=== PATIENT | male | born 1945 | race Caucasian/White ===

== ENCOUNTER → 2018-09-19 | Outpatient (CLI) | payer MEDICARE, OTHER, SELFPAY ==
--- NOTE | 2018-09-19 13:18 | RAD_ITS ---
STUDY: X-RAY - LUMBAR SPINE REASON FOR EXAM: Male, 72 years old. Pain TECHNIQUE: 5 view(s) of the lumbar spine were obtained. COMPARISON: X-ray lumbar spine December 09, 2016 FINDINGS: There is no evidence of fracture or dislocation in the lumbar spine. Mild disc space loss is present at the L4-L5 level. Mild disc space loss is present at the L3-L4 and L5-S1 level. Mild multilevel osteoarthrosis is present. RAD/L/S Spine Min 4 Views IMPRESSION: No fracture or dislocation in the lumbar spine. Degenerative changes described above. Electronically Signed: Edwin Xiao, at 19:02 EDT Tel , Service support ,
== END | disposition home or self-care (01) ==
PROVIDERS: Family Provider Family Medicine; PCP Family Medicine
DX: M54.16 Radiculopathy, lumbar region (principal)
CPT/HCPCS: 72110

== ENCOUNTER → 2018-11-01 | Outpatient (CLI) | payer MEDICARE, OTHER, SELFPAY ==
[2018-10-25 12:44] LABS: BUN 17 mg/dL (7-18); Creatinine, Serum 1.03 mg/dL (0.70-1.30); EST Glomerular Filtration Rate 76 mL/min (>60); Est Glom Filt Rate - Afr Amer 91 mL/min (>60)
--- NOTE | 2018-11-01 09:32 | MRI_ITS ---
HISTORY: Left lumbar radiculopathy and bilateral leg pain, history of prior surgery 2011 COMPARISON: Lumbar radiograph 09/19/2018 and MRI lumbar spine 12/09/2016 TECHNIQUE: Multisequence multiplanar MR imaging of the lumbar spine was performed per department protocol without and with 19 ml of Dotarem IV gadolinium. # of images incl. 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 Lumbar alignment is within normal limits . No acute fracture or subluxation. Lumbar vertebral bodies are normal in height. Minimal degenerative anterior spurring throughout the lumbar spine. Prior left hemilaminotomy at the L4 and L5 levels. No focal marrow signal abnormality to suggest a pathologic process. CONUS: The conus is identified opposite the L1 level and is normal in morphology and signal characteristics. DISCS: Moderate disc space narrowing at L4-L5 and severe disc space narrowing at L5-S1 level. Vacuum phenomenon at the L5-S1 level. Desiccated disc at L5-S1 and moderate disc desiccation at L3-L4 and L4-L5 levels. LEVELS: T12-L1: No disc bulge or disc protrusion. No canal or neural foraminal stenosis. L1-2: Mild posterior disc bulge asymmetric to the right without significant effacement of the ventral thecal sac. No superimposed disc protrusion. No canal or foraminal stenosis. L2-3: No disc bulge or disc protrusion. No canal or neural foraminal stenosis. L3-4: A 2 mm broad-based disc protrusion which combines with mild facet joint arthropathy and ligamentum flavum redundancy results in mild canal stenosis. No foraminal stenosis. L4-5: Left hemilaminotomy defect is seen. Combination of 2 mm broad-based disc protrusion and mild facet joint arthropathy results in mild canal stenosis. No neural foramina stenosis. L5-S1: Left hemilaminotomy defect is seen. 2-3 mm central disc protrusion which predominate effaces the ventral epidural fat and 1 mm effacement of the central aspect of the ventral thecal sac. Mild bilateral facet joint arthropathy. No canal or foraminal stenosis. POST CONTRAST: Post contrast imaging demonstrates no abnormal enhancement of the cauda equina or neural roots to suggest arachnoiditis or neuritis respectively. No abnormal enhancement of the osseous structures or visualized soft tissues. SOFT TISSUES: Paravertebral soft tissues show no gross signal abnormalities. MRI/Spine Lumbar W/WO Contrast IMPRESSION: 1. 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 2. Status post left hemilaminotomy at L4 and L5. 3. Mild canal stenosis at L3-L4 and L4-L5 levels, unchanged from November 2016. 4. No neural foraminal stenosis. 5. No abnormal enhancement. at 1655 Reported and signed by: Elvin Guan MD Electronically Signed: Elvin Guan MD at 16:54 EDT Tel , Service support ,
== END | disposition home or self-care (01) ==
LOC: MRI 09:30
PROVIDERS: Family Provider Family Medicine; PCP Family Medicine; Referring Provider Orthopaedic Surgery Orthopaedic Surgery of the Spine; Visit Provider Orthopaedic Surgery Orthopaedic Surgery of the Spine
DX: M48.062 Spinal stenosis, lumbar region with neurogenic claudication (principal); M51.36 Other intervertebral disc degeneration, lumbar region
CPT/HCPCS: 36415; 72158; 82565; 84520; A9575

== ENCOUNTER → 2019-01-26 12:41 | Outpatient (CLI) | payer MEDICARE, OTHER, SELFPAY ==
[2018-12-13 09:49] VITALS: BMI 32.2
--- NOTE | 2019-01-26 12:53 | RAD_ITS ---
STUDY: X-RAY - PELVIS AND BILATERAL HIPS REASON FOR EXAM: Pain in hips, mostly on the left side and crest tender to touch. TECHNIQUE: AP view of the pelvis.? 2 views of the right hip, and 2 views of the left hip were obtained. COMPARISON: None. FINDINGS: Normal visualized soft tissue structures. There is mild enthesopathy of the iliac wings bilaterally. Otherwise, unremarkable bilateral iliac wings, sacroiliac joints and visualized sacrum. Normal bilateral superior and inferior pubic rami. Normal pubic symphysis. Normal bilateral ischial tuberosities. Normal visualized right femoral head. Normal right acetabulum. There is mild joint space narrowing of the superomedial right hip joint. Normal visualized left femoral head. Normal left acetabulum. There is mild joint space narrowing of the superomedial left hip joint. RAD/Hips B/L min 2 views w/ Pelvis IMPRESSION: Mild bilateral hip arthrosis. Mild enthesopathy of the iliac wings bilaterally. Electronically Signed: Calixto Mukherjee MD at 13:15 EDT Tel , Service support ,
== END ==
LOC: LAB 12:46 → RAD 12:48
PROVIDERS: Family Provider Family Medicine; PCP Family Medicine
DX: M70.72 Other bursitis of hip, left hip (principal); M25.559 Pain in unspecified hip
CPT/HCPCS: 73521

== ENCOUNTER 2021-06-26 11:58 | Emergency (ER) | payer MEDICARE, OTHER, SELFPAY ==
[2021-06-26 12:02] VITALS: BP 136/62; PULSE 70; RESP 16; TEMP 36.6; O2SAT 97; BMI 32.4
--- NOTE | 2021-06-26 12:14 | EX.ED.UPPERE ---
HPI History of Present Illness HPI Narrative: Patient presents with injury to his right middle finger that occurred today. Patient states he was doing some woodworking with a jointer. Patient states that he got his right middle finger caught in the jointer. Patient states that he cut the tip of his finger off. Patient states the bleeding has been persistent. Patient states this occurred approximately 20 to 30 minutes prior to arrival. Patient describes the pain as sharp. Patient states nothing makes it worse and nothing makes it better. Patient denies any paresthesias or weakness. Patient is unsure of his last tetanus. Patient denies any other injuries. Chief Complaint: Laceration Informant: patient Occured/Mechanism Comment: Cut with a jointer Onset/Context/Timing Onset: Today Context: Sudden Onset Timing: Continuous Quality of Pain: Sharp Location: Distal phalanx right middle finger Worsened by: Nothing Relieved by: Nothing Associated Symptoms Associated Symptoms: Negative for Parasthesia and Weakness Narrative Tetanus Immunization: Unknown PFSH PFSH Medical History Acute maxillary sinusitis, unspecified Arthritis Cataract COVID-19 h/o cancer H/O hemorrhoids Hay fever Hypertension Shoulder pain Home Medications celecoxib 200 mg capsule 200 mg PO BID 12/13/18 [History Last Taken Unknown] nebivolol 20 mg tablet 20 mg PO DAILY 12/13/18 [History Last Taken Unknown] omeprazole 20 mg capsule,delayed release 20 mg PO DAILY 12/13/18 [History Last Taken Unknown] tamsulosin 0.4 mg capsule 0.4 mg PO DAILY 12/13/18 [History Last Taken Unknown] amlodipine 5 mg PO DAILY 06/26/21 [History Last Taken Unknown] cephalexin 500 mg PO Q6 #40 capsule 06/26/21 [Rx Last Taken Unknown] Allergy/AdvReac Type Severity Reaction Status Date / Time No Known Allergies Allergy Verified 06/26/21 12:04 Family History Father Cancer Throat Brother Cancer Mother Hypertension Surgical History Previous back surgery Social History Smoking Status: Never smoker ROS ROS ED Constitutional Constitutional ED: Denies chills or fever(s) Eyes Eyes: Denies blurry vision or change in vision ENT ENT ED: Denies rhinorrhea or sore throat Cardiovascular Cardiovascular: Denies chest pain or palpitations Respiratory/Chest Respiratory/Chest: Denies cough or dyspnea Gastrointestinal Gastrointestinal: Denies nausea or vomiting Genitourinary Genitourinary ED: Denies dysuria or hematuria Musculoskeletal Musculoskeletal: Reports back pain; Denies neck pain Integumentary Denies abscess or rash Neurologic Neurologic: Denies headache(s) or weakness Allergic/Immunologic Allergic/Immunologic ED: Denies mouth swelling or urticaria EXAM Physical Exam Const Vital Signs: 06/26/21 12:02 Temperature 97.8 F Temperature Source Temporal Pulse Rate 70 Respiratory Rate 16 Blood Pressure 136/62 H Blood Pressure Mean 86 Pulse Ox 97 Oxygen Delivery Method Room Air Positive well nourished and well developed General Appearance ED: well developed and NAD HEENT Reports moist mucous membranes Neck full ROM and supple Extremity Extremity Narrative: There is a 2.5 cm full-thickness avulsion laceration over the radial aspect of the distal phalanx of the right middle finger. There is involvement of the nailbed and nail plate. There is loss of tissue noted. There is mild bleeding noted. There are no foreign bodies noted. There is full range of motion. Sensation was intact to light touch in all digits. Capillary refill was less than 2 seconds in all digits. Neuro oriented x3, CN's II-XII intact bilaterally, moves all extremities, no focal motor deficits and no sensory deficits noted Sensorium / Orientation: alert Psych mental status grossly normal MDM MDM MDM Narrative Medical decision making narrative: Patient was given a tetanus booster. Patient was given a dose of Ancef here. X-rays of the right middle finger were obtained. There are 3 views. On my interpretation, there is a partial amputation of the distal phalanx of the right middle finger on the radial aspect with loss of soft tissue as well. There are no foreign bodies visualized. There are no other fractures noted. Radiologist also interpreted the x-rays and agrees. The right middle finger was anesthetized with 1% lidocaine via digital block. The wound was cleaned and irrigated with copious amounts of normal saline. Ring tourniquet was applied. The wound was closed with 3 subcutaneous 4-0 Vicryl sutures and 2 simple interrupted #4-0 nylon sutures under sterile technique. Xeroform gauze dressing was applied. Patient tolerated procedure well. Case was discussed with Dr. Youssef. He will follow up with the patient in 5 to 7 days. Patient was given a prescription for Keflex. Patient was instructed to return if worse in any way. Patient understood and was agreeable with the plan. All questions were answered. Discharge Plan Triage Chief Complaint: Laceration ED Provider: Zack Kennedy Dx/Rx/DC Orders Clinical Impression: Open nondisplaced fracture of distal phalanx of right middle finger Instructions: ED Laceration, Hand: All Closures Prescriptions: New cephalexin [cephalexin] 500 MG capsule 500 mg PO Q6 Qty: 40 RF: 0 No Action omeprazole 20 mg capsule,delayed release(DR/EC) 20 mg PO DAILY RF: 0 tamsulosin [Flomax] 0.4 mg capsule 0.4 mg PO DAILY RF: 0 Bystolic 20 mg tablet 20 mg PO DAILY RF: 0 celecoxib [Celebrex] 200 mg capsule 200 mg PO BID RF: 0 amlodipine 5 mg tablet 5 mg PO DAILY RF: 0 Primary Care Provider: Micheal Cox Referrals: Micheal Cox DO [Primary Care Provider] - Ascencion Youssef DO [STAFF PHYSICIAN] - 5-7 Days Disposition Disposition: Home, Self Care
--- NOTE | 2021-06-26 12:20 | RAD_ITS ---
STUDY: X-RAY - RIGHT HAND, ATTENTION MIDDLE FINGER REASON FOR EXAM: Pain in the left middle finger, left middle finger injury. TECHNIQUE: 3 view(s) of the finger were obtained. COMPARISON: None. FINDINGS: Normal metacarpal head. Normal metacarpophalangeal joint. Normal proximal phalanx. Normal middle phalanx. There is partial amputation of the ungual tuft. Normal proximal interphalangeal joint. Normal distal interphalangeal joint. 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 Electronically Signed: Calixto Mukherjee MD at 13:11 EDT ,
[2021-06-26] MEDS: Diphth,Pertuss(Acell),Tet Vac 0.5 ML Vial IM (12:32)
[2021-06-26] MEDS: Cefazolin 1 GM/50 ML BAG IV (12:44)
[2021-06-26] MEDS: Lidocaine 1% (20 ml mdv) 20 ML Vial INFILT (12:45)
== END 2021-06-26 14:11 | disposition home or self-care (01) ==
PROVIDERS: Emergency Provider Emergency Medicine; PCP Family Medicine; Visit Provider Emergency Medicine
DX: S62.662B Nondisplaced fracture of distal phalanx of right middle finger, initial encounter for open fracture (principal); I10 Essential (primary) hypertension; Z86.16 Personal history of COVID-19; M19.90 Unspecified osteoarthritis, unspecified site; Z79.899 Other long term (current) drug therapy; W26.8XXA Contact with other sharp object(s), not elsewhere classified, initial encounter; Y93.9 Activity, unspecified; Y92.9 Unspecified place or not applicable; Z23 Encounter for immunization
CPT/HCPCS: 12001; 73140; 90471; 90715; 99285